=== PATIENT | male | born 1985 | race African-American/Black ===

== ENCOUNTER 2017-12-06 11:02 | Emergency (ER) | payer SELFPAY ==
[2017-12-06 12:48] LABS: Bilirubin Negative (Negative); Blood, Urine Negative (Negative); Clarity CLEAR (Clear); Glucose, Urine (Dipstick) Negative (Negative); Leukocyte Negative (Negative); Nitrite Negative (Negative); Protein, Urine (Dipstick) Negative (Neg-Trace); Specific Gravity, Urine 1.003 (1.002-1.036); Urobilinogen 0.2 mg/dL (0.2-1.0); pH, Urine 7.5 (5.0-9.0)
[2017-12-06] MEDS ORDERED: Ketorolac Tromethamine 30 MG/ML VIAL ONE (13:09)
== END 2017-12-06 13:14 | disposition home or self-care (01) ==
LOC: ERS 11:02
DX: M54.5 Low back pain (principal)
CPT/HCPCS: 81003; 96372; J1885

== ENCOUNTER 2018-04-19 19:10 | Emergency (ER) | payer SELFPAY ==
[2018-04-19 19:50] LABS: #Eosinphils 0.1 thou/uL (0.0-0.7); #Lymphocytes 2.4 thou/uL (1.20-3.40); #Monocytes 0.5 thou/uL (0.11-0.59); #Neutrophils 4.2 thou/uL (1.40-6.50); %Basophils 0.3 % (0.0-1.0); %Eosinophils 1.7 % (0.0-10.0); %Lymphocytes 33.4 % (21.0-51.0); %Monocytes 7.1 % (0.0-10.0); %Neutrophils 57.5 % (42.0-75.0); Hemoglobin 17.2 g/dL (14.0-18.0); Mean Corpuscular HGB CONC 36.7 g/dL (32.0-36.0); Mean Corpuscular Volume 89.9 fL (78.0-98.0); Mean Platelet Volume 7.5 fL (7.4-10.4); Platelet Count 194 thou/uL (130-400); RBC Distribution Width 11.8 % (11.5-14.5); Red Blood Cell (RBC) Count 5.22 mill/uL (4.70-6.10); White Blood Cell (WBC) Count 7.3 thou/uL (4.8-10.8)
[2018-04-19 20:02] LABS: ALT (SGPT) 56 U/L (8-55); AST (SGOT) 29 U/L (5-34); Albumin 4.5 g/dL (3.5-5.0); Alkaline Phosphatase 95 U/L (40-150); Anion Gap 14 mmol/L (10-20); BUN (Urea Nitrogen) 13 mg/dL (8.9-20.6); Bilirubin, Total 0.6 mg/dL (0.2-1.2); CK (CPK) 336 U/L (30-200); Calc. Creatinine Clearance 0 mL/min (70-130); Calcium 9.8 mg/dL (7.8-10.44); Carbon Dioxide 26 mmol/L (22-29); Chloride 105 mmol/L (98-107); Estimated GFR-MDRD 77; Globulin 2.6 g/dL (2.4-3.5); Glucose 100 mg/dL (70-105); Lipase 35 U/L (8-78); Potassium 3.8 mmol/L (3.5-5.1); Protein, Total 7.1 g/dL (6.0-8.3); Sodium 141 mmol/L (136-145)
[2018-04-19 20:07] LABS: CKMB 2.6 ng/mL (0-6.6); Troponin I Less than 0.010 ng/mL (< 0.028)
--- NOTE | 2018-04-19 20:22 | RAD ---
PORTABLE CHEST: 04/19/18 HISTORY: Chest pain. Lung [place] are clear. Heart and mediastinum unremarkable. Osseous structures unremarkable. IMPRESSION: No acute process. POS: [facility]
== END 2018-04-19 21:18 | disposition home or self-care (01) ==
LOC: ERS 19:10
DX: G56.22 Lesion of ulnar nerve, left upper limb (principal); R07.89 Other chest pain
CPT/HCPCS: 71045; 80053; 82550; 82553; 83690; 84484; 85025; 93005

== ENCOUNTER 2019-02-08 22:41 | Emergency (ER) | payer SELFPAY ==
[2019-02-08] MEDS ORDERED: Proparacaine 0.5% Opth 15 ML BOT ONE (23:43)
[2019-02-08] MEDS ORDERED: Fluorescein Opthalmic Strip ONE (23:45)
== END 2019-02-09 00:21 | disposition home or self-care (01) ==
LOC: ERS 22:41
DX: H10.9 Unspecified conjunctivitis (principal)
CPT/HCPCS: 99283